=== PATIENT | male | born 1965 | race Caucasian/White ===

== ENCOUNTER → 2019-03-13 | Outpatient (REF) | payer MEDICAID ==
[~2019-03-13] MED LIST: ACET500C PO; ALBU83IN HHN; INVA1INJ IV; NO HOME MEDS; No Home Meds; PERCOCET PO; PROZ20CA11 PO; SERO1TAB PO
[2019-03-13 18:02] LABS: BASO # 0.1 10^3/uL (0.0-0.2); BASO % 0.6 % (0.0-1.0); EOS # 0.2 10^3/uL (0.0-0.50); EOS % 2.2 % (0.0-3.0); HEMATOCRIT 44.2 % (42.0-52.0); HEMOGLOBIN 14.9 g/dl (13.5-17.5); LYMPH # 1.8 10^3/uL (1.5-4.5); LYMPH % 17.9 % (24.0-44.0); MEAN CORPUSCULAR HEMOGLOBIN 31.2 pg (27.0-33.0); MEAN CORPUSCULAR HGB CONC 33.7 g/dl (32.0-36.5); MEAN CORPUSCULAR VOLUME 92.7 fl (80.0-96.0); MONO # 0.8 10^3/uL (0.0-0.8); MONO % 7.9 % (0.0-5.0); NEUTROPHILS # 7.3 10^3/uL (1.8-7.7); NEUTROPHILS % 71.2 % (36.0-66.0); PLATELET COUNT, AUTOMATED 214 10^3/uL (150-450); RED BLOOD COUNT 4.77 10^6/uL (4.30-6.10); WHITE BLOOD COUNT 10.3 10^3/uL (4.0-10.0)
[2019-03-13 18:16] LABS: APPEARANCE, URINE HAZY (CLEAR); BACTERIA, URINE AUTO NEGATIVE (NEGATIVE); BILIRUBIN, URINE AUTO NEGATIVE (NEGATIVE); BLOOD, URINE BLOOD NEGATIVE (NEGATIVE); CALCIUM OXALATE CRYSTALS SMALL; COLOR, URINE YELLOW (YELLOW); GLUCOSE, URINE (UA) AUTO NEGATIVE (NEGATIVE); KETONE, URINE AUTO NEGATIVE (NEGATIVE); LEUKOCYTE ESTERASE, URINE AUTO NEGATIVE (NEGATIVE); MUCUS, URINE SMALL (NEGATIVE); NITRITE, URINE AUTO NEGATIVE (NEGATIVE); PROTEIN, URINE AUTO NEGATIVE (NEGATIVE); RBC, URINE AUTO 1 /HPF (0-3); SPECIFIC GRAVITY URINE AUTO 1.023 (1.002-1.035); SQUAMOUS EPITHELIAL CELL UR AU 0 /HPF (0-6); WBC, URINE AUTO 0 /HPF (0-3)
[2019-03-13 18:19] LABS: ALBUMIN 3.9 GM/DL (3.2-5.2); ALT/SGPT 27 U/L (12-78); BILIRUBIN,TOTAL 0.2 MG/DL (0.2-1.0); BLOOD UREA NITROGEN 12 MG/DL (7-18); CALCIUM LEVEL 9.1 MG/DL (8.5-10.1); CARBON DIOXIDE LEVEL 30 MEQ/L (21-32); CHLORIDE LEVEL 108 MEQ/L (98-107); CHOLESTEROL LEVEL 159 MG/DL (<200); CHOLESTEROL RISK RATIO 3.312 (<5); CREATININE FOR GFR 0.91 MG/DL (0.70-1.30); FREE T4 0.77 NG/DL (0.76-1.46); GLOMERULAR FILTRATION RATE > 60.0 (>56); GLUCOSE, FASTING 96 MG/DL (70-100); HDL CHOLESTEROL 48 MG/DL (>40); LDL CHOLESTEROL 77 MG/DL (<100); NON-HDL-C 111 MG/DL; POTASSIUM SERUM 4.4 MEQ/L (3.5-5.1); SODIUM LEVEL 142 MEQ/L (136-145); TOTAL 25(OH) VITAMIN D 18.9 NG/ML (30.0-100.0); TRIGLYCERIDES LEVEL 168 MG/DL (<150)
[2019-03-13 18:40] LABS: HEMOGLOBIN A1c 5.4 %
[2019-03-16 00:06] LABS: Lyme Disease IgG/IgM Antibodie <0.91 ISR (0.00-0.90); Lyme Disease IgM Ab Quantitati <0.80 index (0.00-0.79)
== END ==
LOC: M LAB REF 16:49
PROVIDERS: ATTEND Family Medicine
DX: Z12.5 Encounter for screening for malignant neoplasm of prostate (principal); Z13.228 Encounter for screening for other metabolic disorders

== ENCOUNTER → 2019-11-20 | Outpatient (CLI) | payer OTHER ==
--- NOTE | 2019-11-20 11:24 | REP ---
MRI LUMBAR SPINE WITHOUT CONTRAST: HISTORY: Low back pain and sciatica on the right side for several years. No comparison lumbar imaging. TECHNIQUE: Sagittal and axial T1 and T2-weighted scans are acquired in the usual fashion with and without fat saturation. Sequences include spin echo, turbo spin-echo, and STIR imaging sequences. MRI FINDINGS: Lumbar vertebral body heights are preserved. Alignment is normal. There is no evidence of spondylolysis or spondylolisthesis. A normal caliber aorta is seen. No extra vertebral abnormality is observed. The tip of the conus medullaris is normal in position and appearance at the L1-L2 disc level. There are degenerative disc changes most pronounced at L5-S1. Axial and sagittal images at L5-S1 demonstrate a right posterior and right foraminal focal disc protrusion producing significant right-sided neural foraminal narrowing at the L5-S1 level. There are reactive marrow changes on either side of the degenerated L5-S1 disc, most pronounced on the right side. The right-sided disc bulge and displaces the emerging S1 root dorsally somewhat. At L4-5, there is mild diffuse disc bulging. There is right foraminal disc bulging producing mild right-sided neural foraminal narrowing at L4-5 as well. The left neural foramen appears adequate. No central canal stenosis is seen. There is mild facet hypertrophy. At L3-4, there is degenerative narrowing of the disc. There is a left posterior broad-based focal disc protrusion effacing the left ventral margin of the thecal sac and contacting the emerging left fourth root. At L2-3, there is degenerative disc narrowing. A small focal disc protrusion is seen in the left medial foraminal region. There is prominent anterior osteophyte formation at L2-3. Diffuse bulging of the remainder of the disc margin indents the ventral margin of the thecal sac. No central canal stenosis is seen. At L1-2, there is no significant abnormality. IMPRESSION: Degenerative spondylosis changes. There is significant right-sided foraminal narrowing at L5-S1 due to right posterior and foraminal disc protrusion and associated spurring. There is also right-sided foraminal narrowing at L4-5 due to right foraminal disc bulging. Electronically Signed by Tony Puckett MD 11/20/2019 12:14 P
== END ==
LOC: M RAD 09:26
PROVIDERS: ATTEND Family Medicine
DX: M54.16 Radiculopathy, lumbar region (principal)

== ENCOUNTER 2020-01-19 18:26 | Emergency (ER) | payer OTHER ==
[~2020-01-19] VITALS: Ht 167.6 cm; Wt 68.2 kg
[2020-01-19] MEDS ORDERED: GABA-843 PO (18:40)
[2020-01-19] MEDS ORDERED: BOOSTRIX/ADACEL VACCINE (DIPHTH/PERTUSS/ACELL/TETANUS) 0.5ML SYR IM ONE (18:45)
[2020-01-19] MEDS ORDERED: ISOVUE-370 76% 100ML VIAL As Ordered ONE (18:46)
[2020-01-19 18:59] LABS: BASO % 0.6 % (0.0-1.0); EOS # 0.1 10^3/uL (0.0-0.5); EOS % 1.2 % (0.0-3.0); HEMOGLOBIN 13.3 g/dl (13.5-17.5); LYMPH # 2.2 10^3/uL (1.5-5.0); LYMPH % 42.4 % (24.0-44.0); MEAN CORPUSCULAR HEMOGLOBIN 30.2 pg (27.0-33.0); MEAN CORPUSCULAR HGB CONC 34.1 g/dl (32.0-36.5); MEAN CORPUSCULAR VOLUME 88.4 fl (80.0-96.0); MONO # 0.4 10^3/uL (0.0-0.8); MONO % 8.5 % (0.0-5.0); NEUTROPHILS # 2.4 10^3/uL (1.5-8.5); NEUTROPHILS % 46.9 % (36.0-66.0); PLATELET COUNT, AUTOMATED 199 10^3/uL (150-450); RED BLOOD COUNT 4.41 10^6/uL (4.30-6.10); WHITE BLOOD COUNT 5.1 10^3/uL (4.0-10.0)
[2020-01-19 19:10] LABS: INR 0.93; PROTHROMBIN TIME 12.2 SECONDS (11.8-14.0)
[2020-01-19 19:11] LABS: PARTIAL THROMBOPLASTIN TIME 26.7 SECONDS (25.0-38.4)
--- NOTE | 2020-01-19 19:16 | REPVR ---
PROCEDURE INFORMATION: Exam: CT Head Without Contrast Exam date and time: 01/19/2020 6:40 PM Age: 54 years old Clinical indication: Injury or trauma; Fall; Initial encounter; Blunt trauma (contusions or hematomas) TECHNIQUE: Imaging protocol: Computed tomography of the head without contrast. Radiation optimization: All CT scans at this facility use at least one of these dose optimization techniques: automated exposure control; mA and/or kV adjustment per patient size (includes targeted exams where dose is matched to clinical indication); or iterative reconstruction. COMPARISON: No relevant prior studies available. FINDINGS: Brain: Normal. No hemorrhage. Unremarkable white matter. No mass effect. Ventricles: Normal. No ventriculomegaly. Bones/joints: Unremarkable. No acute fracture. Sinuses: Visualized sinuses are unremarkable. No fluid levels. Mastoid air cells: Visualized mastoid air cells are well aerated. Soft tissues: Unremarkable. IMPRESSION: No acute intracranial abnormality. Electronically signed by: Maximiliano Ortiz On 01/19/2020 19:15:35 PM
--- NOTE | 2020-01-19 19:30 | REPVR ---
PROCEDURE INFORMATION: Exam: CT Cervical Spine Without Contrast Exam date and time: 01/19/2020 6:40 PM Age: 54 years old Clinical indication: Injury or trauma; Fall; Initial encounter; Blunt trauma TECHNIQUE: Imaging protocol: Computed tomography images of the cervical spine without contrast. Radiation optimization: All CT scans at this facility use at least one of these dose optimization techniques: automated exposure control; mA and/or kV adjustment per patient size (includes targeted exams where dose is matched to clinical indication); or iterative reconstruction. COMPARISON: No relevant prior studies available. FINDINGS: Vertebrae: There is multilevel uncovertebral and facet hypertrophy with neural foramina narrowing. No acute fracture. No spondylolisthesis. Soft tissues: Unremarkable. Lungs: Lung apices are normal. IMPRESSION: No acute abnormality. Electronically signed by: Maximiliano Ortiz On 01/19/2020 19:30:03 PM
[2020-01-19 19:32] LABS: ALBUMIN 3.8 GM/DL (3.2-5.2); ALT/SGPT 30 U/L (12-78); BILIRUBIN,DIRECT 0.1 MG/DL (0.0-0.2); BILIRUBIN,TOTAL 0.3 MG/DL (0.2-1.0); BLOOD UREA NITROGEN 8 MG/DL (7-18); CALCIUM LEVEL 8.5 MG/DL (8.5-10.1); CARBON DIOXIDE LEVEL 24 MEQ/L (21-32); CHLORIDE LEVEL 111 MEQ/L (98-107); CREATININE FOR GFR 0.79 MG/DL (0.70-1.30); ETHYL ALCOHOL (ETHANOL) 0.225 % (0.000-0.010); GLOMERULAR FILTRATION RATE > 60.0 (>56); GLUCOSE, FASTING 106 MG/DL (70-100); POTASSIUM SERUM 3.8 MEQ/L (3.5-5.1); SODIUM LEVEL 143 MEQ/L (136-145); TOTAL PROTEIN 6.9 GM/DL (6.4-8.2)
--- NOTE | 2020-01-19 19:36 | REPVR ---
PROCEDURE INFORMATION: Exam: CT Maxillofacial Without Contrast Exam date and time: 01/19/2020 6:40 PM Age: 54 years old Clinical indication: Injury or trauma; Fall; Initial encounter; Blunt trauma (contusions or hematomas); Forehead TECHNIQUE: Imaging protocol: Computed tomography images of the face without contrast. Radiation optimization: All CT scans at this facility use at least one of these dose optimization techniques: automated exposure control; mA and/or kV adjustment per patient size (includes targeted exams where dose is matched to clinical indication); or iterative reconstruction. COMPARISON: No relevant prior studies available. FINDINGS: Orbits: Orbits are normal. Globes are unremarkable. Bones/joints: No acute fracture. Sinuses: Complete opacification of bilateral frontal sinuses. There is mucosal thickening of the right ethmoid sinuses. Small mucous retention cyst/polyp of the left maxillary sinus. Mucosal thickening of the right maxillary sinus. Dental: Extensive periodontal disease. Soft tissues: Unremarkable. IMPRESSION: No acute fracture. Paranasal sinus mucosal disease as described above. Extensive periodontal disease. Electronically signed by: Maximiliano Ortiz On 01/19/2020 19:36:21 PM
--- NOTE | 2020-01-19 19:47 | REPVR ---
PROCEDURE INFORMATION: Exam: CT Abdomen And Pelvis With Contrast Exam date and time: 01/19/2020 6:40 PM Age: 54 years old Clinical indication: Injury or trauma; Fall; Initial encounter; Blunt; Generalized TECHNIQUE: Imaging protocol: Computed tomography of the abdomen and pelvis with intravenous contrast. Radiation optimization: All CT scans at this facility use at least one of these dose optimization techniques: automated exposure control; mA and/or kV adjustment per patient size (includes targeted exams where dose is matched to clinical indication); or iterative reconstruction. Contrast material: ISO 370; Contrast volume: 100 ml; Contrast route: IV; COMPARISON: No relevant prior studies available. FINDINGS: Liver: Normal. No mass. Gallbladder and bile ducts: Normal. No calcified stones. No ductal dilation. Pancreas: Normal. No ductal dilation. Spleen: Normal. No splenomegaly. Adrenals: Normal. No mass. Kidneys and ureters: Normal. No hydronephrosis. Stomach and bowel: Unremarkable. No obstruction. No mucosal thickening. Appendix: No evidence of appendicitis. Intraperitoneal space: Unremarkable. No free air. No significant fluid collection. Vasculature: Unremarkable. No abdominal aortic aneurysm. Lymph nodes: Unremarkable. No enlarged lymph nodes. Bladder: Unremarkable as visualized. Reproductive: Unremarkable as visualized. Bones/joints: Unremarkable. No acute fracture. Soft tissues: Unremarkable. IMPRESSION: No acute abdominal or pelvic abnormality. Electronically signed by: Maximiliano Ortiz On 01/19/2020 19:47:41 PM
--- NOTE | 2020-01-19 19:49 | REPVR ---
PROCEDURE INFORMATION: Exam: CT Thoracic Spine Without Contrast Exam date and time: 01/19/2020 6:40 PM Age: 54 years old Clinical indication: Injury or trauma; Fall; Initial encounter; Blunt trauma (contusions or hematomas) TECHNIQUE: Imaging protocol: Computed tomography images of the thoracic spine without contrast. Radiation optimization: All CT scans at this facility use at least one of these dose optimization techniques: automated exposure control; mA and/or kV adjustment per patient size (includes targeted exams where dose is matched to clinical indication); or iterative reconstruction. COMPARISON: No relevant prior studies available. FINDINGS: Vertebrae: No acute fracture. Normal alignment. T1-T2: No significant disc protrusion. No severe spinal canal stenosis. No significant neural foraminal narrowing. T2-T3: No significant disc protrusion. No severe spinal canal stenosis. No significant neural foraminal narrowing. T3-T4: No significant disc protrusion. No severe spinal canal stenosis. No significant neural foraminal narrowing. T4-T5: No significant disc protrusion. No severe spinal canal stenosis. No significant neural foraminal narrowing. T5-T6: No significant disc protrusion. No severe spinal canal stenosis. No significant neural foraminal narrowing. T6-T7: No significant disc protrusion. No severe spinal canal stenosis. No significant neural foraminal narrowing. T7-T8: No significant disc protrusion. No severe spinal canal stenosis. No significant neural foraminal narrowing. T8-T9: No significant disc protrusion. No severe spinal canal stenosis. No significant neural foraminal narrowing. T9-T10: No significant disc protrusion. No severe spinal canal stenosis. No significant neural foraminal narrowing. T10-T11: No significant disc protrusion. No severe spinal canal stenosis. No significant neural foraminal narrowing. T11-T12: No significant disc protrusion. No severe spinal canal stenosis. No significant neural foraminal narrowing. T12-L1: No significant disc protrusion. No severe spinal canal stenosis. No significant neural foraminal narrowing. IMPRESSION: Thirty no acute abnormality. Electronically signed by: Maximiliano Ortiz On 01/19/2020 19:49:27 PM
--- NOTE | 2020-01-19 19:53 | REPVR ---
PROCEDURE INFORMATION: Exam: CT Lumbar Spine Without Contrast Exam date and time: 01/19/2020 6:40 PM Age: 54 years old Clinical indication: Injury or trauma; Fall; Initial encounter; Blunt trauma (contusions or hematomas) TECHNIQUE: Imaging protocol: Computed tomography images of the lumbar spine without contrast. Radiation optimization: All CT scans at this facility use at least one of these dose optimization techniques: automated exposure control; mA and/or kV adjustment per patient size (includes targeted exams where dose is matched to clinical indication); or iterative reconstruction. COMPARISON: MRI-Spine, L.S. without con 11/20/2019 9:44 AM FINDINGS: Vertebrae: No acute fracture. Normal alignment. L1-L2: No significant disc protrusion. No severe spinal canal stenosis. No significant neural foraminal narrowing. L2-L3: Minimal disc bulge. No spinal canal stenosis. No neural foraminal narrowing. L3-L4: Minimal disc bulge and bilateral facet hypertrophy. No severe spinal canal stenosis. No significant neural foraminal narrowing. L4-L5: Minimal disc bulge and bilateral facet hypertrophy. No severe spinal canal stenosis. Moderate bilateral neural foraminal narrowing. L5-S1: Disc bulge with disc osteophyte complex. Bilateral facet hypertrophy. Severe right and moderate left neural foraminal narrowing. No spinal canal stenosis. Soft tissues: Unremarkable. IMPRESSION: Multilevel degenerative disc disease with neural foraminal narrowing. Moderate bilateral neural foraminal narrowing at L4-L5, severe right and moderate left at L5-S1. Electronically signed by: Maximiliano Ortiz On 01/19/2020 19:53:24 PM
--- NOTE | 2020-01-19 19:57 | REPVR ---
PROCEDURE INFORMATION: Exam: CT Chest With Contrast Exam date and time: 01/19/2020 6:40 PM Age: 54 years old Clinical indication: Injury or trauma; Fall; Initial encounter; Blunt trauma (contusions or hematomas) TECHNIQUE: Imaging protocol: Computed tomography of the chest with intravenous contrast. Radiation optimization: All CT scans at this facility use at least one of these dose optimization techniques: automated exposure control; mA and/or kV adjustment per patient size (includes targeted exams where dose is matched to clinical indication); or iterative reconstruction. Contrast material: ISO 370; Contrast volume: 100 ml; Contrast route: IV; COMPARISON: CR Chest, 2 view PA, Lat 12/17/2013 8:57 PM FINDINGS: Lungs: Unremarkable. No consolidation. No masses. Pleural space: Unremarkable. No pneumothorax. No pleural effusion. Heart: Unremarkable. No cardiomegaly. No pericardial effusion. Aorta: Unremarkable. No aortic aneurysm. Lymph nodes: Unremarkable. No enlarged lymph nodes. Bones/joints: Unremarkable. No acute fracture. Soft tissues: Unremarkable. IMPRESSION: No acute abnormality. Electronically signed by: Maximiliano Ortiz On 01/19/2020 19:56:38 PM
[2020-01-19] MEDS ORDERED: LIDOCAINE 1% MDV 20ML VIAL As Ordered ONE (20:06)
[2020-01-19] MEDS ORDERED: LIDOCAINE 1% MDV 20ML VIAL SC ONE (20:15)
--- NOTE | 2020-01-19 22:03 | REPVR ---
PROCEDURE INFORMATION: Exam: XR Right Forearm Exam date and time: 01/19/2020 9:40 PM Age: 54 years old Clinical indication: Pain; Lower or forearm; Right; Additional info: Trauma TECHNIQUE: Imaging protocol: XR Right forearm. Views: 2 views. COMPARISON: No relevant prior studies available. FINDINGS: Bones/joints: Normal. Soft tissues: Normal. IMPRESSION: No acute abnormality. Electronically signed by: Maximiliano Ortiz On 01/19/2020 22:03:03 PM
--- NOTE | 2020-01-19 22:04 | REPVR ---
PROCEDURE INFORMATION: Exam: XR Right Hip with Pelvis when Performed Exam date and time: 01/19/2020 9:40 PM Age: 54 years old Clinical indication: Injury or trauma; Fall; Initial encounter; Blunt trauma (contusions or hematomas); Right; Pelvic region TECHNIQUE: Imaging protocol: XR Right hip with pelvis when performed. Views: 2 or 3 views. COMPARISON: CT ABD PELVIS WITH CONTRAST 01/19/2020 6:54 PM FINDINGS: Bones/joints: Unremarkable. No acute fracture. Soft tissues: Unremarkable. Organs: Contrast is seen in the bladder and bilateral ureters from prior study. IMPRESSION: No acute abnormality. Electronically signed by: Maximiliano Ortiz On 01/19/2020 22:03:58 PM
--- NOTE | 2020-01-19 22:07 | REPVR ---
PROCEDURE INFORMATION: Exam: XR Right Ankle Exam date and time: 01/19/2020 9:40 PM Age: 54 years old Clinical indication: Pain; Ankle; Right; Additional info: Trauma TECHNIQUE: Imaging protocol: XR Right ankle. Views: 3 or more views. COMPARISON: No relevant prior studies available. FINDINGS: Bones/joints: No acute fracture. No dislocation. Small calcaneal spur. Soft tissues: Normal. IMPRESSION: No acute abnormality. Electronically signed by: Maximiliano Ortiz On 01/19/2020 22:06:53 PM
--- NOTE | 2020-01-19 22:08 | REPVR ---
PROCEDURE INFORMATION: Exam: XR Right Shoulder Exam date and time: 01/19/2020 9:40 PM Age: 54 years old Clinical indication: Pain; Shoulder; Right; Additional info: Trauma TECHNIQUE: Imaging protocol: XR Right shoulder. Views: 2 or more views. COMPARISON: No relevant prior studies available. FINDINGS: Bones/joints: Normal. Lungs: Visualized lung parenchyma is unremarkable. Soft tissues: Normal. IMPRESSION: No acute abnormality. Electronically signed by: Maximiliano Ortiz On 01/19/2020 22:08:13 PM
--- NOTE | 2020-01-19 22:10 | REPVR ---
PROCEDURE INFORMATION: Exam: XR Right Hand Exam date and time: 01/19/2020 9:40 PM Age: 54 years old Clinical indication: Pain; Hand; Right; Additional info: Trauma TECHNIQUE: Imaging protocol: XR Right hand. Views: 3 or more views. COMPARISON: CR Hand, complete 12/17/2013 8:57 PM FINDINGS: Bones/joints: No acute fracture. Plate and pin fixation in the 4th metacarpal. Soft tissues: Normal. Other findings: No subluxation. IMPRESSION: No acute abnormality. Electronically signed by: Maximiliano Ortiz On 01/19/2020 22:10:19 PM
--- NOTE | 2020-01-19 22:11 | REPVR ---
PROCEDURE INFORMATION: Exam: XR Right Wrist Exam date and time: 01/19/2020 9:40 PM Age: 54 years old Clinical indication: Pain; Wrist; Right; Additional info: Trauma TECHNIQUE: Imaging protocol: XR Right wrist. Views: 3 or more views. COMPARISON: CR FINGER (S) 04/06/2015 2:34 PM FINDINGS: Bones/joints: Normal. Soft tissues: Normal. Vasculature: Vascular calcifications. IMPRESSION: No acute abnormality. Electronically signed by: Maximiliano Ortiz On 01/19/2020 22:11:48 PM
[2020-01-19 23:00] VITALS: BP 113/74
--- NOTE | 2020-01-21 15:01 | ED PDOC ---
Post-Departure Follow-Up dr nica tovar faxed formal report of ct ls spine for fu Jose Mayorga MD Jan 21, 2020 15:01
== END 2020-01-19 23:43 | disposition home or self-care (01) ==
LOC: EDBD 18:26 → M ED 18:26
DX: S09.90XA Unspecified injury of head, initial encounter (principal); S01.81XA Laceration without foreign body of other part of head, initial encounter; S60.211A Contusion of right wrist, initial encounter; W17.89XA Other fall from one level to another, initial encounter; Y92.89 Other specified places as the place of occurrence of the external cause; F32.9 Major depressive disorder, single episode, unspecified; F17.200 Nicotine dependence, unspecified, uncomplicated; Z79.899 Other long term (current) drug therapy; Z23 Encounter for immunization
CPT/HCPCS: 12013; 70450; 70486; 71260; 72125; 72128; 72131; 73030; 73090; 73110; 73130; 73502; 73610; 74177; 80047; 80048; 80076; 85025; 85610; 85730; 90471; 90715; 93041; 94760; 99285; G0480; Q9967

== ENCOUNTER 2023-06-09 17:15 | Emergency (ER) | payer MEDICAID, OTHER, SELFPAY ==
[~2023-06-09] VITALS: Ht 167.6 cm; Wt 61.0 kg
[~2023-06-09 17:15] MED LIST changes: +ALBU2.5V10 HHN; -ALBU83IN HHN; +GABA-282 PO
[2023-06-09 17:22] VITALS: TEMP 98.6
[2023-06-09 20:36] LABS: BASO % 0.3 % (0.0-1.0); EOS # 0.1 10^3/uL (0.0-0.5); EOS % 0.4 % (0.0-3.0); HEMATOCRIT 46.2 % (42.0-52.0); HEMOGLOBIN 15.7 g/dl (13.5-17.5); LYMPH # 1.5 10^3/uL (1.5-5.0); LYMPH % 10.6 % (24.0-44.0); MEAN CORPUSCULAR HEMOGLOBIN 30.1 pg (27.0-33.0); MEAN CORPUSCULAR VOLUME 88.7 fl (80.0-96.0); MONO # 0.9 10^3/uL (0.0-0.8); MONO % 6.5 % (2.0-8.0); NEUTROPHILS # 11.6 10^3/uL (1.5-8.5); NEUTROPHILS % 81.8 % (36.0-66.0); PLATELET COUNT, AUTOMATED 268 10^3/uL (150-450); RED BLOOD COUNT 5.21 10^6/uL (4.30-6.10); WHITE BLOOD COUNT 14.2 10^3/uL (4.0-10.0)
[2023-06-09 20:42] LABS: ERYTHROCYTE SEDIMENTATION RATE 57 mm/hr (0-20)
[2023-06-09 20:48] LABS: INR 0.96; PROTHROMBIN TIME 12.5 SECONDS (12.5-14.5)
[2023-06-09 20:49] LABS: PARTIAL THROMBOPLASTIN TIME 28.9 SECONDS (24.8-34.2)
[2023-06-09 20:57] LABS: ALBUMIN 3.8 G/DL (3.2-5.2); ALKALINE PHOSPHATASE 108 U/L (46-116); ALT/SGPT 26 U/L (7.0-40); AST/SGOT 15 U/L (<34); BILIRUBIN,DIRECT 0.3 MG/DL (<0.4); BILIRUBIN,TOTAL 0.8 MG/DL (0.3-1.2); BLOOD UREA NITROGEN 12 MG/DL (9-23); CALCIUM LEVEL 9.3 MG/DL (8.5-10.1); CARBON DIOXIDE LEVEL 28 MMOL/L (20-31); CHLORIDE LEVEL 104 MMOL/L (98-107); CREATININE FOR GFR 0.68 MG/DL (0.70-1.30); GLOMERULAR FILTRATION RATE > 60.0 (>56); GLUCOSE, FASTING 89 MG/DL (60-100); POTASSIUM SERUM 4.5 MMOL/L (3.5-5.1); SODIUM LEVEL 140 MMOL/L (136-145); TOTAL PROTEIN 7.6 G/DL (5.7-8.2)
[2023-06-09 21:07] LABS: RSV AMPLIFICATION NEGATIVE (NEGATIVE)
[2023-06-09] MEDS ORDERED: DALBAVANCIN 1,500 MG in D5W 250 ML IV ONE (22:25)
[2023-06-10 01:18] VITALS: BP 146/83; O2SAT 97
== END 2023-06-10 01:18 | disposition home or self-care (01) ==
LOC: M ED 17:15
DX: L02.512 Cutaneous abscess of left hand (principal); L02.31 Cutaneous abscess of buttock; L02.413 Cutaneous abscess of right upper limb; L03.317 Cellulitis of buttock; L03.113 Cellulitis of right upper limb; L03.114 Cellulitis of left upper limb; F17.200 Nicotine dependence, unspecified, uncomplicated
CPT/HCPCS: 10060; 73130; 80048; 80076; 83605; 85025; 85610; 85652; 85730; 86140; 87040; 87070; 87077; 87186; 87631; 93971; 96365; 99284; J0875